=== PATIENT | female | born 1950 | race Caucasian/White ===

== ENCOUNTER 2018-11-26 20:47 | Emergency (ER) | payer MEDICARE, OTHER ==
[~2018-11-26 20:47] MED LIST: ASPI-715 PO; EPIN0.3P15 IM; LEVO125T85 PO; PRED20TA6 PO
--- NOTE | 2018-11-26 20:55 | ER Report ---
History and Physical Time Seen By MD: 20:54 HPI/ROS CHIEF COMPLAINT: fever, feeling ill,? Influenza HISTORY OF PRESENT ILLNESS: 68-year-old female presents ambulatory to the ER complaining of illness for 2-3 days. She describes fever and body aches. She describes a dry cough. Patient states exposure to influenza with by her son. REVIEW OF SYSTEMS: Respiratory: No cough, no dyspnea. Cardiovascular: No chest pain, no palpitations. Gastrointestinal: No vomiting, no abdominal pain. Musculoskeletal: No back pain. Allergies: Coded Allergies: Tetanus Vaccines and Toxoid (Verified Allergy, Severe, 02/05/15) meperidine (Verified Allergy, Severe, CONVULSION, 03/15/10) Penicillins (Verified Allergy, Mild, HIVES/ ITCHING, 03/15/10) Uncoded Allergies: INFLUENZA VACCINE (Allergy, Severe, 02/05/15) Home Meds Active Scripts Codeine Phosphate/Guaifenesin (Robafen AC Oral Solution) 10 Mg-100 Mg/5 Ml Liquid, 5-10 ML PO Q4H PRN for cough, #240 Prov:BUBBA DIOP DO 11/26/18 Epinephrine (EPIPEN 2-CAROLA) 0.3 Mg/0.3 Ml Pen.injctr, 0.3 MG IM DIRECTED PRN for ALLERGY SYMPTOMS, #1 PACK 0 Refills Prov:SESAR HOOKS MD 02/05/15 Reported Medications Aspirin (Aspirin) 81 Mg Tablet.dr, 81 MG PO DAILY, 0 Refills 03/15/10 Levothyroxine Sodium (Levothroid) 125 Mcg Tablet, 125 MCG PO DAILY, 0 Refills 03/15/10 Discontinued Scripts Prednisone (PREDNISONE) 20 Mg Tablet, 40 MG PO QDAY, #6 TAB 0 Refills Prov:SESAR HOOKS MD 02/05/15 Reviewed Nurses Notes: Yes Old Medical Records Reviewed: Yes Hx Smoking: No Constitutional Vital Sign - Last 24 Hours 11/26/18 11/26/18 11/26/18 11/26/18 20:52 20:55 21:00 21:00 Temp 98.6 Pulse 65 Resp 14 B/P (MAP) 132/57 (82) 132/57 122/68 (86) Pulse Ox 84 O2 Delivery Room Air O2 Flow Rate 3.0 11/26/18 11/26/18 11/26/18 11/26/18 21:02 21:17 21:39 21:47 Pulse ??? 60 51 B/P (MAP) 132/73 (92) Pulse Ox 94 92 94 O2 Delivery Nasal Cannula Nasal Cannula Nasal Cannula O2 Flow Rate 3 3 3 11/26/18 11/26/18 11/26/18 11/26/18 22:00 22:00 22:02 22:03 Pulse 62 58 63 Resp 20 22 Pulse Ox 96 98 O2 Delivery Nasal Cannula Nasal Cannula O2 Flow Rate 2.5 3 11/26/18 22:17 Pulse 69 Pulse Ox 90 O2 Delivery Room Air Intake and Output 11/26/18 11/26/18 11/27/18 15:00 23:00 07:00 Intake Total 1000 ml Balance 1000 ml Physical Exam General Appearance: The patient is alert, has no immediate need for airway protection and no current signs of toxicity. vital signs stable, afebrile, mildly hypoxic HEENT: Pupils equal and round no injection.TMs normal, oropharynx without redness or exudate Respiratory: Chest is non tender, lungs are clear to auscultation. Cardiac: regular rate and rhythm no wheezing or rails Gastrointestinal: Abdomen is soft and non tender, no masses, bowel sounds normal . Musculoskeletal: Neck: Neck is supple and non tender. xtremities have full range of motion and are non tender. Skin: No rashes or lesions. DIFFERENTIAL DIAGNOSIS: After history and physical exam differential diagnosis was considered for adult fever including but not limited to viral syndromes in cluding influenza, urinary tract infection, pneumonia and sepsis. Medical Decision Making Data Points Result Diagram: 11/26/18205711/26/182057 Laboratory Hematology Test 11/26/18 20:55 11/26/18 20:58 11/26/18 21:15 Influenza Virus Type A (PCR) Positive (NEGATIVE) Influenza Virus Type B (PCR) Negative (NEGATIVE) Red Blood Count 4.87 M/uL (4.17-5.56) Mean Corpuscular Volume 88.9 fL (80.0-96.0) Mean Corpuscular Hemoglobin 30.5 pg (26.0-33.0) Mean Corpuscular Hemoglobin Concent 34.4 g/dL (32.0-36.0) Red Cell Distribution Width 13.1 % (11.5-14.5) Mean Platelet Volume 6.8 fL (7.2-11.1) Neutrophils (%) (Auto) 68.7 % (39.4-72.5) Lymphocytes (%) (Auto) 20.4 % (17.6-49.6) Monocytes (%) (Auto) 8.5 % (4.1-12.4) Eosinophils (%) (Auto) 0.3 % (0.4-6.7) Basophils (%) (Auto) 2.1 % (0.3-1.4) Nucleated RBC Relative Count (auto) 0.0 /100WBC Neutrophils # (Auto) 3.1 K/uL (2.0-7.4) Lymphocytes # (Auto) 0.9 K/uL (1.3-3.6) Monocytes # (Auto) 0.4 K/uL (0.3-1.0) Eosinophils # (Auto) 0.0 K/uL (0.0-0.5) Basophils # (Auto) 0.1 K/uL (0.0-0.1) Nucleated RBC Absolute Count (auto) 0.00 K/uL Sodium Level 134 mmol/L (137-145) Potassium Level 4.2 mmol/L (3.5-5.0) Chloride Level 101 mmol/L (98-107) Carbon Dioxide Level 24 mmol/L (22-31) Blood Urea Nitrogen 18 mg/dl (7-18) Creatinine 0.90 mg/dl (0.52-1.04) Glomerular Filtration Rate Calc > 60.0 Random Glucose 113 mg/dl (75-110) Lactate 1.0 mmol/L (0.7-2.1) Calcium Level 9.5 mg/dl (8.4-10.2) Total Bilirubin 0.3 mg/dl (0.2-1.3) Aspartate Amino Transf (AST/SGOT) 38 U/L (0-35) Alanine Aminotransferase (ALT/SGPT) 33 U/L (0-56) Alkaline Phosphatase 60 U/L (0-126) C-Reactive Protein 3.0 mg/dl (<1.0) Total Protein 7.2 g/dl (6.3-8.2) Albumin 4.1 g/dl (3.5-5.0) Urine Color Yellow Urine Clarity Slightly-cloudy Urine pH 6.0 pH (4.8-9.5) Urine Specific [place] 1.011 Urine Protein Negative mg/dL (NEGATIVE) Urine Glucose (UA) Negative mg/dL (NEGATIVE) Urine Ketones Negative mg/dL (NEGATIVE) Urine Blood Negative (NEGATIVE) Urine Nitrite Negative (NEGATIVE) Urine Bilirubin Negative (NEGATIVE) Urine Urobilinogen Negative mg/dL (0.2-1.9) Urine Leukocyte Esterase Negative (NEGATIVE) Urine RBC 1 /HPF (0-2/HPF) Urine WBC 2 /HPF (0-5/HPF) Urine Squamous Epithelial Cells None /LPF (</=FEW) Urine Amorphous Crystals Few /HPF Urine Bacteria Negative /HPF (NONE-FEW) Urine Mucus None /HPF (NONE-FEW) Chemistry Test 11/26/18 20:55 11/26/18 20:58 11/26/18 21:15 Influenza Virus Type A (PCR) Positive (NEGATIVE) Influenza Virus Type B (PCR) Negative (NEGATIVE) White Blood Count 4.5 k/uL (4.5-11.0) Red Blood Count 4.87 M/uL (4.17-5.56) Hemoglobin 14.9 g/dL (12.0-16.0) Hematocrit 43.3 % (34.0-47.0) Mean Corpuscular Volume 88.9 fL (80.0-96.0) Mean Corpuscular Hemoglobin 30.5 pg (26.0-33.0) Mean Corpuscular Hemoglobin Concent 34.4 g/dL (32.0-36.0) Red Cell Distribution Width 13.1 % (11.5-14.5) Platelet Count 210 K/uL (150-450) Mean Platelet Volume 6.8 fL (7.2-11.1) Neutrophils (%) (Auto) 68.7 % (39.4-72.5) Lymphocytes (%) (Auto) 20.4 % (17.6-49.6) Monocytes (%) (Auto) 8.5 % (4.1-12.4) Eosinophils (%) (Auto) 0.3 % (0.4-6.7) Basophils (%) (Auto) 2.1 % (0.3-1.4) Nucleated RBC Relative Count (auto) 0.0 /100WBC Neutrophils # (Auto) 3.1 K/uL (2.0-7.4) Lymphocytes # (Auto) 0.9 K/uL (1.3-3.6) Monocytes # (Auto) 0.4 K/uL (0.3-1.0) Eosinophils # (Auto) 0.0 K/uL (0.0-0.5) Basophils # (Auto) 0.1 K/uL (0.0-0.1) Nucleated RBC Absolute Count (auto) 0.00 K/uL Glomerular Filtration Rate Calc > 60.0 Lactate 1.0 mmol/L (0.7-2.1) Calcium Level 9.5 mg/dl (8.4-10.2) Total Bilirubin 0.3 mg/dl (0.2-1.3) Aspartate Amino Transf (AST/SGOT) 38 U/L (0-35) Alanine Aminotransferase (ALT/SGPT) 33 U/L (0-56) Alkaline Phosphatase 60 U/L (0-126) C-Reactive Protein 3.0 mg/dl (<1.0) Total Protein 7.2 g/dl (6.3-8.2) Albumin 4.1 g/dl (3.5-5.0) Urine Color Yellow Urine Clarity Slightly-cloudy Urine pH 6.0 pH (4.8-9.5) Urine Specific [place] 1.011 Urine Protein Negative mg/dL (NEGATIVE) Urine Glucose (UA) Negative mg/dL (NEGATIVE) Urine Ketones Negative mg/dL (NEGATIVE) Urine Blood Negative (NEGATIVE) Urine Nitrite Negative (NEGATIVE) Urine Bilirubin Negative (NEGATIVE) Urine Urobilinogen Negative mg/dL (0.2-1.9) Urine Leukocyte Esterase Negative (NEGATIVE) Urine RBC 1 /HPF (0-2/HPF) Urine WBC 2 /HPF (0-5/HPF) Urine Squamous Epithelial Cells None /LPF (</=FEW) Urine Amorphous Crystals Few /HPF Urine Bacteria Negative /HPF (NONE-FEW) Urine Mucus None /HPF (NONE-FEW) Urinalysis Test 11/26/18 21:15 Urine Color Yellow Urine Clarity Slightly-cloudy Urine pH 6.0 pH (4.8-9.5) Urine Specific [place] 1.011 Urine Protein Negative mg/dL (NEGATIVE) Urine Glucose (UA) Negative mg/dL (NEGATIVE) Urine Ketones Negative mg/dL (NEGATIVE) Urine Blood Negative (NEGATIVE) Urine Nitrite Negative (NEGATIVE) Urine Bilirubin Negative (NEGATIVE) Urine Urobilinogen Negative mg/dL (0.2-1.9) Urine Leukocyte Esterase Negative (NEGATIVE) Urine RBC 1 /HPF (0-2/HPF) Urine WBC 2 /HPF (0-5/HPF) Urine Squamous Epithelial Cells None /LPF (</=FEW) Urine Amorphous Crystals Few /HPF Urine Bacteria Negative /HPF (NONE-FEW) Urine Mucus None /HPF (NONE-FEW) EKG/Imaging Imaging X-ray: two-view chest x-ray was obtained. I viewed the images myself on the PACS system. My interpretation of the images is: no infiltrate, no effusion, atelectasis left base, present on previous x-rays dated 07/06/15. The radiologist interpretation had no clinically significant variation from this interpretation. ED Course/Re-evaluation Clinical Indication for ER IV: Hydration, IV Access ED Course The patient was admitted to an examination room. H&P was done. The differential diagnoses was considered. On clinical examinationpatient appears nontoxic. Vital signs are stable. Laboratory studies are done. Her WBC is mildly elevated at 13 pointher rapid influenza comes back for flu a. Her chest x-ray shows no obvious infiltrate. Her mild hypoxia is improved after a nebulizer. Patient was offered Tamiflu. She does not be effective. She's been sick for more than 72 hours. Decision to Disposition Date: Nov 26, 2018 Decision to Disposition Time: 21:54 Depart Departure Latest Vital Signs Vital Signs Date Time Temp Pulse Resp B/P (MAP) Pulse Ox O2 Delivery O2 Flow Rate FiO2 11/26/18 22:17 69 90 Room Air 11/26/18 22:03 22 11/26/18 22:02 3 11/26/18 21:39 132/73 (92) 11/26/18 20:55 98.6 Impression: Primary Impression: Influenza A Additional Impression: Headache Condition: Improved Disposition: HOME OR SELF-CARE Referrals: MAREK CHRISTENSEN DO (PCP) New Scripts Codeine Phosphate/Guaifenesin (Robafen AC Oral Solution) 10 Mg-100 Mg/5 Ml Liquid 5-10 ML PO Q4H PRN for cough, #240 Prov: BUBBA DIOP DO 11/26/18 Patient Instructions: Influenza (ED) Additional Instructions: Alternate ibuprofen and Tylenol as needed for pain relief Drink plenty of fluids Use Phenergan With Codeine cough syrup to control your symptoms and help to sleep Follow-up with primary care if unimproved in 3-5 days Problem Qualifiers Additional Impression: Headache Headache type: unspecified Headache chronicity pattern: acute headache Intractability: not intractable Qualified Codes: R51 - Headache BUBBA DIOP DO Nov 26, 2018 20:55
[2018-11-26] MEDS ORDERED: NS(*) 0.9% 1000 ML BAG 1,000 ML IV ONE (21:03)
[2018-11-26] MEDS ORDERED: fentaNYL CITR 100 MCG/2 ML AMP IVP ONE (21:05)
[2018-11-26] MEDS ORDERED: ONDANSETRON 4 MG/2 ML VIAL IVP ONE (21:05)
[2018-11-26 21:12] LABS: PLATELET COUNT, AUTOMATED 210 K/uL (150-450)
[2018-11-26] MEDS ORDERED: ALBUTEROL 2.5 MG/3 ML NEB NEB ONE (21:30)
[2018-11-26 21:39] VITALS: BP 132/73
[2018-11-26] MEDS ORDERED: CODE473L3 PO (21:57)
--- NOTE | 2018-11-26 21:59 | RADIOLOGY IMAGING REPORT ---
FACILITY: [facility] - [place] PATIENT NAME: Carolynn Mcmanus : 1950 MR: [id number] V: [id number] EXAM DATE: ORDERING PHYSICIAN: BUBBA DIOP TECHNOLOGIST: Location: [facility] Patient: Carolynn Mcmanus : 1950 Visit/Account:[id number] Date of Sevice: 11/26/2018 2 VIEWS CHEST INDICATION: Fever. COMPARISON: 07/06/2015. FINDINGS: Cardiomediastinal silhouette and pulmonary vessels within normal limits. There is no focal infiltrate or lobar consolidation. There is no pneumothorax or pleural effusion. No nodule. Scarring seen in both lung bases. Upper abdomen is unremarkable. Eventration right hemidiaphragm, unchanged. No acute bony. Rightwar d convexity thoracolumbar spine. IMPRESSION: 1. No acute cardiopulmonary process. Report Dictated By: Josh Marion at 11/26/2018 9:49 PM Report E-Signed By: Josh Marion at 11/26/2018 9:55 PM [email or web address]
[2018-11-26] MEDS ORDERED: PROMETH/COD SYRP 6.25-10MG/5ML PO ONE (22:00)
== END 2018-11-26 22:29 | disposition home or self-care (01) ==
LOC: ER 21:08
DX: J11.1 Influenza due to unidentified influenza virus with other respiratory manifestations (principal); R51 Headache; R09.02 Hypoxemia
CPT/HCPCS: 71046; 81001; 83605; 85025; 86140; 87502; 94640; 96361; 96374; 96375; 99284; A9270; J2405; J3010; J7030; J7613; 82040; 82247; 82310; 82374; 82435; 82565; 82947; 84075; 84132; 84155; 84295; 84450; 84460; 84520